=== PATIENT | male | born 1975 | race Caucasian/White ===

== ENCOUNTER → 2018-04-25 | Outpatient (CLI) | payer OTHER | LOC: CIMAGING 16:23 | PROVIDERS: ATTEND Family Medicine | DX: M25.851 Other specified joint disorders, right hip (principal); M25.852 Other specified joint disorders, left hip; E03.9 Hypothyroidism, unspecified; R74.8 Abnormal levels of other serum enzymes | CPT/HCPCS: 73502-PO ==